=== PATIENT | male | born 1990 | race Caucasian/White ===

== ENCOUNTER 2019-01-21 07:38 | Emergency (ER) | payer SELFPAY ==
[2019-01-21] MEDS ORDERED: CLINDAMYCIN PHOSPHATE 150 MG/ML VIAL IM ONE ×2 (08:03→08:14)
--- NOTE | 2019-01-21 08:06 | ED.PDOC ---
History of Present Illness - General Chief Complaint: Bite: Animal/Insect/Human Stated Complaint: Pt states he was bit by an insect/spider 10 days a Time Seen by Provider: 01/21/19 07:58 Source: patient Exam Limitations: no limitations - History of Present Illness Initial Comments: INFECTION TO THE LEFT FOREARM FOR THE PAST 10 1AYS. NOW IT IS PAINFUL AND RED. HE ASSUMES IT COULD HAVE BEEN A SPIDER BITE. DENIES IV DRUG USE. DENIES ANY INJURY. Timing/Duration: other - 10 DAYS Severity: moderate Improving Factors: nothing Worsening Factors: nothing Associated Symptoms: denies symptoms Allergies/Adverse Reactions: Allergies NO KNOWN ALLERGY Allergy (Verified 01/21/19 07:58) Home Medications: Ambulatory Orders Clindamycin HCl [Cleocin] 300 mg PO Q6H 10 Days capsule 01/21/19 Review of Systems - Review of Systems Constitutional: States: no symptoms reported EENTM: States: no symptoms reported Respiratory: States: no symptoms reported Cardiology: States: no symptoms reported Gastrointestinal/Abdominal: States: no symptoms reported Genitourinary: States: no symptoms reported Musculoskeletal: States: no symptoms reported Skin: States: change in color Neurological: States: no symptoms reported Endocrine: States: no symptoms reported Hematologic/Lymphatic: States: no symptoms reported Past Medical History (General) - Patient Medical History Hx Seizures: No Hx Stroke: No Hx Dementia: No Hx Asthma: No Physical Exam - Physical Exam General Appearance: Alert, No apparent distress Eye Exam: bilateral normal Ears, Nose, Throat: hearing grossly normal Neck: non-tender, full range of motion Respiratory: chest non-tender, lungs clear, normal breath sounds Cardiovascular/Chest: normal peripheral pulses, regular rate, rhythm, no edema, no gallop, no murmur Peripheral Pulses: radial,right: 2+, radial,left: 2+ Gastrointestinal/Abdominal: normal bowel sounds, non tender, soft Rectal Exam: deferred Back Exam: normal inspection Extremity: inflammation - TO THE POSTERIOR ASPECT OF THE LEFT FOREARM. 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 Copy, Patient Portal Self Enrollment Diet: full liquid diet Prescriptions: Clindamycin HCl [Cleocin] 300 mg PO Q6H 10 Days capsule Home Medications: Ambulatory Orders Clindamycin HCl [Cleocin] 300 mg PO Q6H 10 Days capsule 01/21/19
[2019-01-21 08:07] VITALS: TEMP 97.6; O2SAT 98
[2019-01-21 08:40] VITALS: BP 136/106
== END 2019-01-21 08:40 | disposition home or self-care (01) ==
LOC: ER 07:38
DX: L03.114 Cellulitis of left upper limb (principal)